=== PATIENT | female | born 1980 | race Caucasian/White ===

== ENCOUNTER 2017-03-15 18:47 | Emergency (ER) | payer MEDICARE, OTHER | END 2017-03-15 23:19 | disposition home or self-care (01) | LOC: ER 18:47 | DX: R07.9 Chest pain, unspecified (principal); M79.602 Pain in left arm; R00.2 Palpitations; R05 Cough; F31.9 Bipolar disorder, unspecified; F17.210 Nicotine dependence, cigarettes, uncomplicated; Z79.899 Other long term (current) drug therapy | CPT/HCPCS: 36415; Q9967 ==